=== PATIENT | male | born 1965 | race Caucasian/White ===

== ENCOUNTER 2021-04-18 16:06 | Emergency (ER) | payer BC ==
[~2021-04-18] VITALS: Ht 182.9 cm; Wt 83.9 kg
--- NOTE | 2021-04-18 17:41 | NUR ---
Bedside XR done. Pt aware will await results. Denies the need for pain medication at this time.
--- NOTE | 2021-04-18 18:48 | NUR ---
Placed thumb spica splint to L wrist/hand per provider order. Taught pt importance of proper use and wear of splint. Taught cap refill check. Pt and family (at bedside) states understanding information provided. Pt will F/U with ortho GABRIELA.
[2021-04-18 18:51] VITALS: BP 134/79
== END 2021-04-18 18:52 | disposition home or self-care (01) ==
LOC: ER 16:10
DX: S62.112A Displaced fracture of triquetrum [cuneiform] bone, left wrist, initial encounter for closed fracture (principal); W01.0XXA Fall on same level from slipping, tripping and stumbling without subsequent striking against object, initial encounter; Y92.89 Other specified places as the place of occurrence of the external cause; R03.0 Elevated blood-pressure reading, without diagnosis of hypertension
CPT/HCPCS: 73110; A4663

== ENCOUNTER 2022-07-15 14:36 | Emergency (ER) | payer BC ==
[~2022-07-15] VITALS: Ht 182.9 cm; Wt 81.6 kg
--- NOTE | 2022-07-15 14:52 | NUR ---
PT IS IN ROOM #2A. DR SELF EVALUATED THE PT.
--- NOTE | 2022-07-15 16:31 | NUR ---
PT WAS D/C'D TO HOME. D/C INSTRUCTIONS GIVEN TO THE PT.
[2022-07-15 16:32] VITALS: BP 139/68
== END 2022-07-15 17:19 | disposition home or self-care (01) ==
LOC: ER 14:36
DX: S20.224A Contusion of middle back wall of thorax, initial encounter (principal); W10.9XXA Fall (on) (from) unspecified stairs and steps, initial encounter; Y92.89 Other specified places as the place of occurrence of the external cause; R03.0 Elevated blood-pressure reading, without diagnosis of hypertension
CPT/HCPCS: 72072; A4663